=== PATIENT | female | born 1940 | race Caucasian/White ===

== ENCOUNTER → 2017-07-02 | Outpatient (CLI) | payer OTHER | LOC: HYPER 06-25 10:36 | DX: L89.154 Pressure ulcer of sacral region, stage 4 (principal); M62.81 Muscle weakness (generalized); J96.20 Acute and chronic respiratory failure, unspecified whether with hypoxia or hypercapnia; B37.2 Candidiasis of skin and nail; J44.9 Chronic obstructive pulmonary disease, unspecified; Z87.891 Personal history of nicotine dependence; Z72.89 Other problems related to lifestyle ==

== ENCOUNTER → 2017-07-27 | Outpatient (CLI) | payer OTHER | LOC: HYPER 07-16 08:36 | DX: L89.154 Pressure ulcer of sacral region, stage 4 (principal); B37.2 Candidiasis of skin and nail; M62.81 Muscle weakness (generalized); J96.20 Acute and chronic respiratory failure, unspecified whether with hypoxia or hypercapnia; J44.9 Chronic obstructive pulmonary disease, unspecified; Z87.891 Personal history of nicotine dependence; Z72.89 Other problems related to lifestyle ==